=== PATIENT | female | born 1930 | race Caucasian/White ===

== ENCOUNTER 2017-08-18 17:29 | Emergency (ER) | payer MEDICARE, BC ==
[~2017-08-18] VITALS: Ht 162.6 cm; Wt 77.1 kg
[~2017-08-18 17:29] MED LIST: AMLO1TAB13 PO; ATOR10TA PO; BETA1TAB18 PO; CA C1TAB70 PO; UBID100C13 PO; [UNRECOGNIZED DRUG - CODE] PO
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
--- NOTE | 2017-08-18 18:45 | NUR ---
PT TO [facility]
--- NOTE | 2017-08-18 19:09 | NUR ---
RECEIVED REPORT FROM RADHA VELA PT AT RADIOLOGY AT THIS TIME.
--- NOTE | 2017-08-18 19:22 | NUR ---
PT RETURNED FROM RADIOLOGY
--- NOTE | 2017-08-18 19:40 | NUR ---
CYCLE MANAGER RAMIREZ AT BEDSIDE SPEAKING TO PT AND FAMILY REGARDING RESULTS
--- NOTE | 2017-08-18 19:49 | NUR ---
Patient discharged to home in stable condition. Written and verbal after care instructions given. Patient verbalizes understanding of instruction. pt w/c out to waiting room per pt and family request.
[2017-08-18 19:52] VITALS: BP 158/77
== END 2017-08-18 19:52 | disposition home or self-care (01) ==
LOC: ER 17:30
DX: S16.1XXA Strain of muscle, fascia and tendon at neck level, initial encounter (principal); S00.83XA Contusion of other part of head, initial encounter; S20.219A Contusion of unspecified front wall of thorax, initial encounter; S40.011A Contusion of right shoulder, initial encounter; W01.198A Fall on same level from slipping, tripping and stumbling with subsequent striking against other object, initial encounter; Y93.89 Activity, other specified; Y92.89 Other specified places as the place of occurrence of the external cause; Y99.8 Other external cause status; I10 Essential (primary) hypertension; E78.5 Hyperlipidemia, unspecified; Z90.710 Acquired absence of both cervix and uterus; Z88.8 Allergy status to other drugs, medicaments and biological substances
CPT/HCPCS: 70450; 70486; 71100; 72125; 73030; 73060; 73130; 99284; A4606; A6402 ×2; Z7610